=== PATIENT | male | born 1985 | race Caucasian/White ===

== ENCOUNTER 2017-12-22 08:54 | Emergency (ER) | payer SELFPAY ==
[2017-12-22 08:58] VITALS: BMI 28.3
[2017-12-22] MEDS ORDERED: morphine SULFATE 4 MG/ML VIAL ONE (09:09)
[2017-12-22] MEDS ORDERED: SODIUM CHLORIDE 0.9% 500 ML INFUS.BAG IV ONE (09:10)
[2017-12-22] MEDS ORDERED: morphine CARPU-JECT 4 MG/1 ML DISP.SYRIN IVPUSH ONE (09:11)
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
[2017-12-22 10:07] LABS: HEMATOCRIT 46.4 % (35.4-49); HEMOGLOBIN 15.4 GM/dL (11.7-16.9); MCH 28.9 pg (25.7-33.7); MCHC 33.1 g/dl (32.0-35.9); MEAN CELL VOLUME 87.3 fl (80-96); MEAN PLT VOLUME 9.1 fl (7.5-11.1); PLATELET COUNT 179 K/MM3 (134-434); RBC 5.32 M/mm3 (4.00-5.60); RDW 13.1 % (11.9-15.9); WHITE BLOOD COUNT 6.7 K/mm3 (4.0-10.0)
[2017-12-22 10:16] VITALS: BP 137/85; PULSE 63
[2017-12-22 10:23] LABS: ALBUMIN 4.1 g/dl (3.4-5.0); ALK PHOS 58 U/L (45-117); ANION GAP 9 (8-16); BILIRUBIN,TOTAL 0.6 mg/dL (0.2-1.0); BLOOD UREA NITROGEN 11 mg/dL (7-18); CALCIUM 8.2 mg/dL (8.5-10.1); CHLORIDE 99 mmol/L (98-107); CO2 27 mmol/L (21-32); CREATININE 0.8 mg/dL (0.7-1.3); GLUCOSE,RANDOM 108 mg/dL (74-106); POTASSIUM 3.6 mmol/L (3.5-5.1); SGOT/AST 48 U/L (15-37); SGPT/ALT 84 U/L (12-78); SODIUM 135 mmol/L (136-145); TOT PROT 7.2 g/dl (6.4-8.2)
== END 2017-12-22 10:00 | disposition short-term general hospital (02) ==
LOC: JER 08:54
PROC: 2W23X4Z Dressing of Abdominal Wall using Bandage (ICD-10-PCS; principal; 2017-12-22)
PROC: 2W21X4Z Dressing of Face using Bandage (ICD-10-PCS; 2017-12-22)
PROC: 2W24X4Z Dressing of Chest Wall using Bandage (ICD-10-PCS; 2017-12-22)
PROC: 3E033NZ Introduction of Analgesics, Hypnotics, Sedatives into Peripheral Vein, Percutaneous Approach (ICD-10-PCS; 2017-12-22)
DX: T20.26XA Burn of second degree of forehead and cheek, initial encounter (principal); T21.22XA Burn of second degree of abdominal wall, initial encounter; T21.21XA Burn of second degree of chest wall, initial encounter; X10.1XXA Contact with hot food, initial encounter; Y93.G3 Activity, cooking and baking; Y92.030 Kitchen in apartment as the place of occurrence of the external cause; Y99.8 Other external cause status
CPT/HCPCS: 36415; 80053; 85027; 99283-25